=== PATIENT | female | born 1955 ===

== ENCOUNTER 2018-02-16 10:23 | Emergency (ER) | payer OTHER, MEDICARE ==
[2018-02-16 10:42] VITALS: BP 132/84; PULSE 70; RESP 18; TEMP 99.3; O2SAT 97
[2018-02-16] MEDS ORDERED: Naproxen 550 mg Tab PO STA (10:56)
[2018-02-16] MEDS ORDERED: Naproxen 550 mg Tab PO ONE (11:04)
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
--- NOTE | 2018-02-16 13:38 | RAD ---
PROCEDURE: Cervical Spine Radiographs. HISTORY: Pain. COMPARISON: None. FINDINGS: BONES: Straightening of the normal lordosis may be related to positioning/spasm. No fracture. Dens Intact. DISC SPACES: Multilevel disc space narrowing, worst at C5-6. SOFT TISSUES: Normal. No prevertebral soft tissue swelling. OTHER FINDINGS: None. IMPRESSION: No acute fracture. Multilevel degenerative changes
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
== END 2018-02-16 12:20 | disposition home or self-care (01) ==
LOC: C.ER 10:23
DX: S83.92XA Sprain of unspecified site of left knee, initial encounter (principal); S83.91XA Sprain of unspecified site of right knee, initial encounter; S73.102A Unspecified sprain of left hip, initial encounter; S73.101A Unspecified sprain of right hip, initial encounter; S93.402A Sprain of unspecified ligament of left ankle, initial encounter; S33.5XXA Sprain of ligaments of lumbar spine, initial encounter; S13.4XXA Sprain of ligaments of cervical spine, initial encounter; V03.10XA Pedestrian on foot injured in collision with car, pick-up truck or van in traffic accident, initial encounter; Y92.410 Unspecified street and highway as the place of occurrence of the external cause